=== PATIENT | female | born 1955 | race Two or more races ===

== ENCOUNTER 2020-07-28 08:45 | Outpatient (CLI) | payer OTHER ==
[~2020-07-28 08:45] MED LIST: CALTRATE 600600 MG; CLONAZEPAM2 MG; EVISTA60 MG; FLEXERIL5 MG; KLONOPIN2 MG/TAB PO; LASIX80 MG PO; NEURONTIN600 MG PO; RELAFEN500 MG PO; SEROQUEL50 MG; VITAMIN D400 UNI2; ZOCOR5 MG; ZYRTEC10 M3; [UNRECOGNIZED DRUG - OTHER]
== END 2020-07-28 09:06 | disposition home or self-care (01) ==
LOC: RAD 08:45
PROVIDERS: ATTEND General Practice
DX: M54.5 Low back pain (principal); K22.2 Esophageal obstruction

== ENCOUNTER 2020-07-28 10:34 | Outpatient (CLI) | payer OTHER | END 2020-07-28 10:40 | disposition home or self-care (01) | LOC: LAB 10:34 | PROVIDERS: ATTEND Radiology Diagnostic Radiology | DX: N20.0 Calculus of kidney (principal) ==

== ENCOUNTER 2020-08-03 08:47 | Outpatient (CLI) | payer OTHER | END 2020-08-03 09:00 | disposition home or self-care (01) | LOC: TOM 08:47 | PROVIDERS: ATTEND Internal Medicine Gastroenterology | DX: R10.12 Left upper quadrant pain (principal); K57.90 Diverticulosis of intestine, part unspecified, without perforation or abscess without bleeding ==

== ENCOUNTER 2020-11-14 10:46 | Outpatient (CLI) | payer OTHER | END 2020-11-14 10:54 | disposition home or self-care (01) | LOC: RAD 10:46 | PROVIDERS: ATTEND Orthopaedic Surgery Pediatric Orthopaedic Surgery | DX: J31.0 Chronic rhinitis (principal); M75.52 Bursitis of left shoulder; M25.512 Pain in left shoulder; M79.671 Pain in right foot ==

== ENCOUNTER 2022-05-17 07:56 | Outpatient (CLI) | payer OTHER | END 2022-05-17 08:07 | disposition home or self-care (01) | LOC: RAD 07:56 | PROVIDERS: ATTEND Internal Medicine Gastroenterology | DX: R13.12 Dysphagia, oropharyngeal phase (principal); J45.30 Mild persistent asthma, uncomplicated; J32.9 Chronic sinusitis, unspecified ==